=== PATIENT | female | born 1995 | race American Indian/Alaskan Native ===

== ENCOUNTER 2020-11-08 07:26 | Emergency (ER) | payer MEDICAID, OTHER ==
[2020-11-08 07:45] VITALS: BP 152/74
== END 2020-11-08 16:12 ==
LOC: ED 07:26
DX: J45.909 Unspecified asthma, uncomplicated (principal); Z53.21 Procedure and treatment not carried out due to patient leaving prior to being seen by health care provider

== ENCOUNTER 2021-01-24 19:38 | Emergency (ER) | payer MEDICAID ==
[2021-01-24] MEDS ORDERED: ACETAMINOPHEN 500 MG TAB PO ONE (20:12)
[2021-01-24] MEDS ORDERED: SODIUM CHLORIDE 0.9% 1000 ML 1,000 ML IV ONE (20:12)
[2021-01-24] MEDS ORDERED: METOCLOPRAMIDE 10 MG/2 ML INJ IV ONE (20:12)
[2021-01-24] MEDS ORDERED: diphenhydrAMINE 50 MG/ML VIAL IV ONE (20:12)
[2021-01-24 20:48] LABS: Basophils # (Auto) 0.1 K/mm3 (0.0-0.1); Basophils % (Auto) 1.1 % (0.0-1.8); Eosinophils # (Auto) 0.1 K/mm3 (0.0-0.4); Eosinophils % (Auto) 1.5 % (0.0-4.3); Hematocrit 36.2 % (30.3-42.9); Hemoglobin 11.9 gm/dl (10.1-14.3); Lymphocytes # (Auto) 2.6 K/mm3 (1.2-5.4); Mean Corpuscular HGB Conc 33 % (30-34); Mean Corpuscular Volume 89 fl (79-97); Monocytes # (Auto) 0.5 K/mm3 (0.0-0.8); Monocytes % (Auto) 6.1 % (0.0-7.3); Platelet Count 409 K/mm3 (140-440); Red Blood Count 4.07 M/mm3 (3.65-5.03); Red Cell Distribution Width 13.2 % (13.2-15.2)
[2021-01-24 20:56] LABS: Color,Urine Yellow (Yellow)
[2021-01-24 20:57] LABS: Bilirubin,Urine NEG (Negative); Blood,Urine NEG (Negative); Mucus,Urine FEW /HPF; Protein,Urine <15 mg/dL mg/dL (Negative)
[2021-01-24 21:08] LABS: Alanine Aminotransferase 18 units/L (7-56); Albumin 3.9 g/dL (3.9-5); Blood Urea Nitrogen 6 mg/dL (7-17); Calcium 8.9 mg/dL (8.4-10.2); Hemolysis Index 67
[2021-01-24 21:13] LABS: BUN/Creatinine Ratio 12
--- NOTE | 2021-01-24 21:56 | Ultrasound Report ---
ULTRASOUND OBSTETRIC INDICATION / CLINICAL INFORMATION: Pelvic pain. TECHNIQUE: Transabdominal. COMPARISON: None available. FINDINGS: GESTATIONAL SAC: Well-defined oval shape and intrauterine in location. YOLK SAC: No significant abnormality. EMBRYO/FETUS: No significant abnormality. - Petrey-Rump Length = 3.3 cm = 10, 1 weeks, days - Heart Rate, beats per minute (if present) = 171 ADNEXA: No significant abnormality. FREE FLUID: None. ADDITIONAL FINDINGS: None. IMPRESSION: 1. Single, living intrauterine with estimated sonographic age of 10, 1 weeks, days. Signer Name: Roger Lindsey MD Signed: 01/24/2021 9:51 PM Workstation Name: [id number]
--- NOTE | 2021-01-24 22:06 | Emergency Department Report ---
ED Abdominal Pain HPI - General Chief Complaint: Abdominal Pain Stated Complaint: HEAD,BACK AND LUQ PAIN Source: EMS Mode of arrival: Ambulatory Limitations: No Limitations - History of Present Illness Initial Comments: Patient is a A0 25-year-old -[place] female who is approximately 9 weeks gestation who presents to the ED with complaint of acute onset persistent intermittent nausea and vomiting and diffuse lower abdominal pain for the last 2 weeks. Patient also complains of persistent intermittent headache. Patient states that she has not been able to keep anything down in the last 2 days. Patient denies vaginal bleeding, dysuria, urinary frequency and urgency, chest pain or shortness of breath, sore throat, diarrhea, dizziness or syncope and change in vision. MD Complaint: abdominal pain (suprapubic), other (nausea and vomiting) -: Sudden, week(s) (2) Location: suprapubic Radiation: suprapubic Migration to: suprapubic Severity scale (0 -10): 6 Quality: aching, sharp Consistency: intermittent Improves With: nothing Worsens With: vomiting Associated Symptoms: denies other symptoms, nausea, vomiting, anorexia. denies: diarrhea, fever, chills, constipation, hematemesis, hematochezia, melena, hematuria, syncope - Related Data LMP Date: 11/13/20 LMP (females 10-50): 2 months Previous Rx's Medication Instructions Recorded Last Taken Type Acetaminophen [Tylenol] 500 mg PO Q6HR PRN #30 tablet 01/24/21 Unknown Rx Famotidine [Pepcid] 20 mg PO BID #60 tablet 01/24/21 Unknown Rx Metoclopramide [Reglan] 10 mg PO Q8H PRN #30 tab 01/24/21 Unknown Rx Allergies Allergy/AdvReac Type Severity Reaction Status Date / Time shellfish derived Allergy Hives Verified 01/24/21 19:45 ED Review of Systems ROS: Stated complaint: HEAD,BACK AND LUQ PAIN Other details as noted in HPI Constitutional: denies: chills, fever Eyes: denies: eye pain, eye discharge, vision change ENT: denies: ear pain, throat pain Respiratory: denies: cough, shortness of breath, wheezing Cardiovascular: denies: chest pain, palpitations Endocrine: no symptoms reported Gastrointestinal: abdominal pain (Suprapubic pressure and pain), nausea, vomiting. denies: diarrhea Genitourinary: frequency. denies: urgency, dysuria, hematuria, discharge, abnormal menses, dyspareunia Musculoskeletal: denies: back pain, joint swelling, arthralgia Skin: denies: rash, lesions Neurological: denies: headache, weakness, paresthesias Psychiatric: denies: anxiety, depression Hematological/Lymphatic: denies: easy bleeding, easy bruising ED Past Medical Hx - Past Medical History Hx Hypertension: Yes - Medications Home Medications: Home Medications Medication Instructions Recorded Confirmed Last Taken Type Acetaminophen [Tylenol] 500 mg PO Q6HR PRN #30 tablet 01/24/21 Unknown Rx Famotidine [Pepcid] 20 mg PO BID #60 tablet 01/24/21 Unknown Rx Metoclopramide [Reglan] 10 mg PO Q8H PRN #30 tab 01/24/21 Unknown Rx ED Physical Exam - General Limitations: No Limitations General appearance: alert, in no apparent distress - Head Head exam: Present: atraumatic, normocephalic, normal inspection - Eye Eye exam: Present: normal appearance, PERRL, EOMI Pupils: Present: normal accommodation - ENT ENT exam: Present: normal exam, normal orophraynx, mucous membranes moist, TM's normal bilaterally, normal external ear exam - Neck Neck exam: Present: normal inspection, full ROM - Respiratory Respiratory exam: Present: normal lung sounds bilaterally. Absent: respiratory distress, wheezes, rales, rhonchi, chest wall tenderness, accessory muscle use - Cardiovascular Cardiovascular Exam: Present: regular rate, normal rhythm, normal heart sounds. Absent: systolic murmur, diastolic murmur, rubs, gallop - GI/Abdominal GI/Abdominal exam: Present: soft, tenderness (Palpable mild suprapubic tenderness), normal bowel sounds. Absent: distended, guarding, hyperactive bowel sounds, organomegaly, mass, bruit, other - Bi-manual exam: Present: other (Pelvic exam deferred at this time) - Extremities Exam Extremities exam: Present: normal inspection, full ROM, normal capillary refill - Back Exam Back exam: Present: normal inspection, full ROM. Absent: tenderness, CVA tenderness (R), CVA tenderness (L), muscle spasm, vertebral tenderness - Neurological Exam Neurological exam: Present: alert, oriented X3, CN II-XII intact, normal gait, reflexes normal - Psychiatric Psychiatric exam: Present: normal affect, normal mood - Skin Skin exam: Present: warm, dry, intact, normal color. Absent: rash ED Course Vital Signs 01/24/21 01/24/21 20:35 22:11 Temperature 98.7 F Pulse Rate 90 Respiratory 18 18 Rate Blood Pressure 122/78 [Left] O2 Sat by Pulse 99 Oximetry ED Medical Decision Making - Lab Data Result diagrams: 01/24/21 20:22 01/24/21 20:22 - Radiology Data Radiology results: report reviewed, image reviewed [address] [address] Ultrasound Report Signed Patient: NIRALI VIZCARRA MR#: [id number] : 1995 A cct:[id number] Age/Sex: 25 / F ADM Date: 01/24/21 Loc: ED Attending Dr: Ordering Physician: STACEY HUNTER Date of Service: 01/24/21 Procedure(s): US OB <= 14 weeks fetus Accession Number(s): [id number] cc: STACEY HUNTER ULTRASOUND OBSTETRIC INDICATION / CLINICAL INFORMATION: Pelvic pain. TECHNIQUE: Transabdominal. COMPARISON: None available. FINDINGS: GESTATIONAL SAC: Well-defined oval shape and intrauterine in location. YOLK SAC: No significant abnormality. EMBRYO/FETUS: No significant abnormality. - Alliance-Rump Length = 3.3 cm = 10, 1 weeks, days - Heart Rate, beats per minute (if present) = 171 ADNEXA: No significant abnormality. FREE FLUID: None. ADDITIONAL FINDINGS: None. IMPRESSION: 1. Single, living intrauterine with estimated sonographic age of 10, 1 weeks, days. Signer Name: Roger Lindsey MD Signed: 01/24/2021 9:51 PM Workstation Name: [id number] Transcribed By: SB Dictated By: ROGER LINDSEY MD Electronically Authenticated By: ROGER LINDSEY MD Signed Date/Time: 01/24/212150 DD/ 49 TD/TT: - Medical Decision Making This is a A0 25-year-old -[place] female who is approximately 9 weeks gestation who presents to the ED with complaint of acute onset persistent intermittent nausea and vomiting and diffuse lower abdominal pain for the last 2 weeks. Patient also complains of persistent intermittent headache. Patient states that she has not been able to keep anything down in the last 2 days. In the ED, patient is alert and oriented x3 and is not in any distress. Patient is hemodynamically stable. Patient was treated for pain with Tylenol, also given antiemetics and normal saline 1 L IV bolus x1. Lab test results were reviewed and are all nonactionable. Transvaginal ultrasound showed a single live intrauterine of approximately 10 weeks and 1 day, and with a h eart rate of 171 bpm and no acute abnormalities. On reevaluation, patient's headache, nausea and vomiting as well as abdominal pain resolved. Patient will discharge home on prescription of antiemetics and Tylenol and advised to maintain a complete pelvic rest and follow-up with her [facility] physician in 3 to 5 days for reevaluation or return to the ED immediately if symptoms get worse. - Differential Diagnosis UTI; Ovarian cyst; Critical care attestation.: If time is entered above; I have spent that time in minutes in the direct care of this critically ill patient, excluding procedure time. ED Disposition Clinical Impression: Abdominal pain during in first trimester, Nausea and vomiting during prior to 22 weeks gestation, Hyperemesis gravidarum Disposition: 01 HOME / SELF CARE / HOMELESS Is pt being admited?: No Does the pt Need Aspirin: No Condition: Stable Instructions: Abdominal Pain During , [id number], Hyperemesis Gravidarum, Morning Sickness, [id number], Abdominal Pain (ED) Additional Instructions: All lab test results were reviewed and are all nonactionable. Urinalysis is unremarkable. Transvaginal ultrasound shows a single live intrauterine of approximately 10 weeks and 1 day, with a heart rate of 171 bpm. Therefore maintain a complete pelvic rest, take medications as needed for pain and also for nausea and vomiting, drink plenty of fluids and follow-up with the [facility]IOR[facility] HEALTH CONSULT[facility] physician as advised in 3 to 5 days. Return to the ED immediately if symptoms get worse. Prescriptions: Acetaminophen [Tylenol] 500 mg PO Q6HR PRN #30 tablet PRN Reason: Pain , Severe (7-10) Famotidine [Pepcid] 20 mg PO BID #60 tablet Metoclopramide [Reglan] 10 mg PO Q8H PRN #30 tab PRN Reason: Nausea And Vomiting Referrals: CASTRO HOLLINS MD [Staff Physician] - 3-5 Days Forms: Work/School Release Form(ED) Time of Disposition: 22:07 Print Language: SYRIAC
[2021-01-25 00:29] VITALS: BP 118/69
== END 2021-01-25 00:29 | disposition home or self-care (01) ==
LOC: ED 19:38
DX: O21.0 Mild hyperemesis gravidarum (principal); O26.891 Other specified pregnancy related conditions, first trimester; R10.30 Lower abdominal pain, unspecified; I10 Essential (primary) hypertension; Z3A.10 10 weeks gestation of pregnancy; Z91.013 Allergy to seafood; Z79.899 Other long term (current) drug therapy
CPT/HCPCS: 36415; 76801; 80053; 81001; 84702; 85025; 96361; 96374; 96375; 99284; J1200; J2765; J7030; Q0162